=== PATIENT | female | born 1985 | race Caucasian/White ===

== ENCOUNTER → 2018-07-19 | Outpatient (CLI) | payer OTHER ==
[~2018-07-19] MED LIST: ALBU90OI INH; AZIT500 PO; CODGUAEL PO; SPACER IH
== END | disposition home or self-care (01) ==
LOC: LAB SHORT 11:15 → LAB 11:15
DX: R30.0 Dysuria (principal)
CPT/HCPCS: 87086

== ENCOUNTER → 2019-03-18 | Outpatient (CLI) | payer OTHER | END | disposition home or self-care (01) | LOC: LAB SHORT 16:28 → LAB 16:28 | DX: N89.8 Other specified noninflammatory disorders of vagina (principal); R30.0 Dysuria | CPT/HCPCS: 87086 ==

== ENCOUNTER → 2021-11-21 | Outpatient (CLI) | payer OTHER | LOC: LAB SHORT 10:40 | DX: R30.0 Dysuria (principal) | CPT/HCPCS: 87077; 87086; 87186 ==

== ENCOUNTER 2022-05-31 10:11 | Day surgery (SDC) | payer OTHER ==
[~2022-05-31] VITALS: Ht 177.8 cm; Wt 92.4 kg
[2022-05-31] MEDS ORDERED: BUTALB-ACETAMI1 EAC6 PO (12:21)
[2022-05-31] MEDS ORDERED: TOPI25 PO (12:21)
[2022-05-31] MEDS ORDERED: IBUP800 PO (12:21)
[2022-05-31] MEDS ORDERED: ALPR1 PO (12:21)
[2022-05-31] MEDS ORDERED: GABA300 PO (12:22)
--- NOTE | 2022-05-31 15:02 | NUR ---
05/31/22 1503 CHRISTIAN PARKS PT NOTED CRAMPING PAIN IN ABD. REQUESTED TAKING SOMETHING PRIOR TO D/C TO GET AHEAD OF THE PAIN.
== END 2022-05-31 15:20 | disposition home or self-care (01) ==
LOC: ORSCSDS 10:11
PROVIDERS: Obstetrics & Gynecology
PROC: 0U5B8ZZ Destruction of Endometrium, Via Natural or Artificial Opening Endoscopic (ICD-10-PCS; principal; 2022-05-31 12:15)
DX: N92.1 Excessive and frequent menstruation with irregular cycle (principal); E11.9 Type 2 diabetes mellitus without complications; D64.9 Anemia, unspecified; F32.A Depression, unspecified; Z79.899 Other long term (current) drug therapy
CPT/HCPCS: 82947; A9270; J1100; J1885; J2250; J2370; J2405; J2704; J3010; J7120

== ENCOUNTER → 2022-06-23 | Outpatient (CLI) | payer OTHER | END | disposition home or self-care (01) | LOC: LAB 17:30 | DX: R30.0 Dysuria (principal) ==

== ENCOUNTER → 2022-07-11 | Outpatient (CLI) | payer OTHER ==
[~2022-07-11] MED LIST changes: +ALPR1 PO; +BUTALB-ACETAMI1 EAC6 PO; +GABA300 PO; +IBUP800 PO; +TOPI25 PO
== END | disposition home or self-care (01) ==
LOC: LAB SHORT 14:05 → LAB 14:05
DX: R30.0 Dysuria (principal)
CPT/HCPCS: 87086